=== PATIENT | female | born 1990 | race African-American/Black ===

== ENCOUNTER → 2019-11-10 | Outpatient (CLI) | payer BC | LOC: RAD 14:30 | PROVIDERS: ATTEND Family Medicine | DX: R20.8 Other disturbances of skin sensation (principal); Z98.82 Breast implant status; Z53.8 Procedure and treatment not carried out for other reasons ==

== ENCOUNTER → 2021-04-19 | Outpatient (CLI) | payer BC ==
[~2021-04-19] MED LIST: ACHD5005 PO; Benzocaine/Menthol TP; DOCU100C37 PO; FERR325T18 PO; IBUP-1773 PO
--- NOTE | 2021-04-19 16:16 | Diagnostic Imaging Report ---
EXAM: OB ULTRASOUND COMPLETE DATE: April 19, 2021. COMPARISON: None. INDICATION: 31-year-old female, supervision of otherwise normal . FINDINGS: Multiple grayscale sonographic images were obtained of the gravid uterus. Overview: Within the uterus there is a single living gestation in cephalic position. There is positive movement and heart motion. heart rate was identified at 150 beats per minute. The amnionic fluid volume is subjectively normal. The placenta is anterior and without previa. The cervical length is 4.3 cm. growth parameters are summarized in detail on the accompanying separate chart. The approximate mean gestational age by today's ultrasound measurements is 20 weeks 2 days +/- 1.5 week variability. Estimated weight based on today's measurements is 334 g. anatomic survey: There is no ventriculomegaly (the lateral ventricle measures 5 mm) the cerebellum, cavum septum pellucidum, falx, and cisterna magna are identified. There is limited images of the spine without demonstrated abnormality. There is visualization of the stomach, kidneys and urinary bladder. The cardiac apex and stomach are on the same side of midline. There is a limited four-chamber view of the heart. There is a three-vessel cord with an unremarkable insertion into the abdominal wall. 4 extremities are seen. The upper lip is not well seen. The maternal ovaries are not well seen. There is no maternal free pelvic fluid. IMPRESSION: 1. Single living intrauterine with approximate mean gestational age of 20 weeks 2 days +/- 1.5 week. 2. No demonstrated abnormality. There are limitations of the survey as above. Biometrical measurements are as follows: Biparietal 4.80 cm, age 20 weeks 4 days. Head circumference 17.52 cm, age 20 weeks 1 days. Abdominal circumference 14.78 cm, age 20 weeks 1 days. Femur length 3.27 cm, age 20 weeks 2 days. Sonographic estimate age: 20 weeks 2 days. Sonographic estimated date of delivery: 09/04/2021. Estimated Weight: 334 gm (+/- 49 gm). LMP percentile: 45%. heart rate: 150 beats per minute. number: 1 of 1. Dictated by: Dictated on workstation # [id number]
== END ==
LOC: RAD 14:15
PROVIDERS: ATTEND Nurse Practitioner Women's Health
DX: Z34.02 Encounter for supervision of normal first pregnancy, second trimester (principal); Z3A.20 20 weeks gestation of pregnancy
CPT/HCPCS: 76805

== ENCOUNTER 2021-08-20 15:32 | Outpatient (CLI) | payer BC ==
[~2021-08-20] VITALS: Ht 175 cm; Wt 106.0 kg
[2021-08-20 16:05] VITALS: BP 118/65
[2021-08-20 16:08] VITALS: BP 118/65
[2021-08-20] MEDS ORDERED: FOLI20CA PO (16:16)
[2021-08-20] MEDS ORDERED: OMEP20TA33 PO (16:16)
[2021-08-20 16:30] VITALS: BP 118/65
--- NOTE | 2021-08-21 08:16 | Physician Query-Final Dx ---
JOSE RESTREPO 08/21/21 0816: Clinic Account Progress/Dx Physician Query: Please give diagnosis Please include # weeks gestation Date of Service Aug 20, 2021 at 15:32 NNEKA TYSON MD 08/21/21 1710: Clinic Account Progress/Dx DIAGNOSIS: Diagnosis False labor at 37 weeks gestation JOSE RESTREPO Aug 21, 2021 08:16 NNEKA TYSON MD Aug 21, 2021 17:10
== END 2021-08-20 16:35 | disposition home or self-care (01) ==
LOC: WSo 15:32 → LDRP 15:32 → WSo 16:30
PROVIDERS: ATTEND Obstetrics & Gynecology
DX: O42.92 Full-term premature rupture of membranes, unspecified as to length of time between rupture and onset of labor (principal); Z3A.37 37 weeks gestation of pregnancy

== ENCOUNTER 2021-09-09 13:26 | Inpatient (IN) | payer BC ==
[~2021-09-09] VITALS: Ht 177.8 cm; Wt 105.1 kg
[2021-09-09] VITALS (13 sets, daily range): BP systolic 104–148; BP diastolic 56–90
[~2021-09-09 13:26] MED LIST changes: +FOLI20CA PO; +OMEP20TA33 PO
[2021-09-09] MEDS ORDERED: D5 LR IV SOLUTION 1,000 ML IV ONE (13:43)
--- NOTE | 2021-09-09 13:55 | History & Physical-OB/GYN ---
PHUONGDEYVI 09/09/21 1355: OB - Chief Complaint & HPI Date/Time Date of Admission: Date of Admission: Date seen by a Provider: Sep 09, 2021 Time Seen by a Provider: 14:00 Chief Complaint/History OB-Reason for Admission/Chief: Onset of Labor (Began having tractions around 11:00 that were 3 minutes apart) Hx : 3 Hx Para: 2 Expected Date of Delivery: Sep 04, 2021 Gestational Age in Weeks: 40 Gestational Age in Days: 5 Admission Nurse Assessment Rev: Yes Allergies and Home Medications Allergies Coded Allergies: No Known Drug Allergies (Unverified , 12/08/19) Patient Home Medication List Folic Acid (Folic Acid) 20 Mg Capsule, 20 MG PO DAILY, (Reported) Entered as Reported by: PETE PAZ on 08/20/21 161 Omeprazole Magnesium (Prilosec Otc) 20 Mg Tablet., 20 MG PO DAILY, (Reported) Entered as Reported by: PETE PAZ on 08/20/211615 OB - History Hx of Present Care: Yes Ultrasounds: Normal mid trimester US Obstetrical Complications: None Medical Complications: None Information Induced Hypertension: No Maternal Gestational Diabetes: No Hemorrhage: No Obstetrical History Hx : 3 Hx Para: 2 Hx # Term Pregnancies: 2 Number of Living Children: 2 Hx Termination: No Hx Multiple Gestation: No Hx Ectopic : No Hx Stillbirth: No Hx Complication: No Hx Induced Hypertens: No Hx Maternal Gestational Diabet: No Hx Hemorrhage: No Social History/Family History 2nd Hand Smoke Exposure: No OB - Admission Exam Physical Exam Cervical Dilatation: 7cm Effacement: 75% Membranes: Ruptured Amniotic Fluid: Clear OB - Assessment/Plan/Diagnosis Assessment Assessment: active labor, rupture of membranes Admission Dx Active labor, rupture of membranes, dilated 6cm Admission Status: Observation Plan Plan: Expectant Management JAMIE MIR DO 09/09/21 1539: Allergies and Home Medications Allergies Coded Allergies: No Known Drug Allergies (Unverified , 12/08/19) Patient Home Medication List Home Medication List Reviewed: Yes Folic Acid (Folic Acid) 20 Mg Capsule, 20 MG PO DAILY, (Reported) Entered as Reported by: PETE PAZ on 08/20/21 161 Omeprazole Magnesium (Prilosec Otc) 20 Mg Tablet., 20 MG PO DAILY, (Reported) Entered as Reported by: PETE PAZ on 08/20/21 1616 OB - History Patient Past Medical History n/a OB - Admission Exam Physical Exam HEENT: NCAT Heart: Rhythm Normal Lungs: Clear Abdomen: Gravid Extremities: Normal Reflexes: Normal Heart Rate: 140's Accelerations: Accelerations Present Decelerations: No Decelerations Short Term Variability: Present Spanish Language Lecturer Variability: Average (6-25) Contractions on Admission: < 5 Minutes Apart Intensity: Firm OB - Assessment/Plan/Diagnosis Assessment Admission Dx 31 yo @ 40.5 Active labor Reason for Inpatient Admission: Active labor at term Supervisory-Addendum Brief Verification & Attestation Participated in pt care: history Personally performed: exam Care discussed with: Medical Student Procedures: n/a Results interpretation: Verified all documentation Verification and Attestation of Medical Student E/M Service A medical student performed and documented this service in my presence. I reviewed and verified all information documented by the medical student and made modifications to such information, when appropriate. I personally performed the physical exam and medical decision making. Jamie Mir, Sep 09, 2021,15:39 DEYVI BACA Sep 09, 2021 13:55 JAMIE MIR DO Sep 09, 2021 15:39
[2021-09-09] MEDS ORDERED: MINERAL OIL CONCENTRATE 99.9% 15 ML UDC TOP PRN (14:30)
[2021-09-09 14:32] LABS: BASOPHILS % (AUTO) 0 % (0-10); EOSINOPHILS % (AUTO) 0 % (0-10); HEMATOCRIT 39 % (35-52); HEMOGLOBIN 12.8 g/dL (11.5-16.0); LYMPHOCYTES # (AUTO) 2.1 10^3/uL (1.0-4.0); LYMPHOCYTES % (AUTO) 18 % (12-44); MEAN CORPUSCULAR HEMOGLOBIN 28 pg (25-34); MEAN CORPUSCULAR HGB CONC 33 g/dL (32-36); MEAN CORPUSCULAR VOLUME 85 fL (80-99); MEAN PLATELET VOLUME 9.9 fL (9.0-12.2); MONOCYTES # (AUTO) 0.6 10^3/uL (0.0-1.0); MONOCYTES % (AUTO) 5 % (0-12); NEUTROPHILS # (AUTO) 8.6 10^3/uL (1.8-7.8); NEUTROPHILS % (AUTO) 74 % (42-75); PLATELET COUNT 254 10^3/uL (130-400); WHITE BLOOD COUNT 11.6 10^3/uL (4.3-11.0)
[2021-09-09] MEDS ORDERED: OXYTOCIN PRE-MIX DRIP 500 ML IV ONE (15:21)
--- NOTE | 2021-09-09 15:42 | OB Labor & Delivery Record ---
L&D History Date of Service Date of Service: Sep 09, 2021 History Expected Date of Delivery: Sep 04, 2021 Gestational Age in Weeks: 40 Hx : 3 Hx Para: 2 Complications Events: Routine care Operative Indications (Cesarea: N/A-Vaginal Delivery Intrapartal Events: None L&D Stage1 Stage One Onset of Labor - Date: Sep 09, 2021 Rupture of Membranes Spontaneous Ruture of Membrane: Yes Amniotic Membrane Rupture Time: 14:05 Amniotic Membrane Fluid Desc.: Clear Vaginal Bleeding Description: Normal Show Progress/Notes Patient admitted in active labor, no augmentation used. SROM occured after admission. She progressed without any analgesia to complete and + 2 station. L&D Stage2 Stage Two Stage II Date: Sep 09, 2021 Monitors and Tracing Monitor Mode: Internal Monitor Accelerations: Uniform Monitor Decelerations: Variable Insurance Inspector Variability: Average (6-10) Short Term Variability: Present Position: Right Occiput Anterior Presentation: Vertex Cord Descript/Complications Cord Vessel Description: 3 Vessels Delivery Type Delivery Method: Spontaneous Vaginal Anterior Shoulder: Right Episiotomy/Perineal Laceration Laceraction(s)/Extensions: No Condition of Delivery 1 minute Comment: 8 5 minute Comment: 9 Condition of Condition of Infant: Living Exam: No Observed Abnormalities Resuscitation Resuscitation: N/A - Spontaneous Resp L&D Stage3 Stage Three Stage III Date: Sep 09, 2021 Pictocin Pitocin Administration Comment: 20 mu/ wide open Placenta Delivery Placenta Delivery: Spontaneous Delivery Summary Summary Estimated blood loss (mL): 200 Attending at delivery: Yahir Mir DO Condition of Delivery Examined: Cervix Examined, Uterus Explored Post Hemorrhage: No Condition of Mother stable Condition of Infant (s) stable YAHIR MIR DO Sep 09, 2021 15:42
[2021-09-09] MEDS ORDERED: WITCH HAZEL(TUCKS) 40 EA JAR TOP PRN (15:45)
[2021-09-09] MEDS ORDERED: TETANUS,DIPTH,PERTUSS P/F (BOOSTRIX) 0.5 ML VIAL IM ONE (15:45)
[2021-09-09] MEDS ORDERED: HYDROcodone/APAP 5 MG/325 MG (LORTAB) TAB PO PRN (15:45)
[2021-09-09] MEDS ORDERED: BENZOCAINE/MENTHOL (DERMOPLAST) 56 ML CAN TP PRN (15:45)
[2021-09-09] MEDS ORDERED: MEASLES,MUMPS,RUBELLA 1 EA INJ SQ ONE (15:45)
[2021-09-09] MEDS ORDERED: NALOXONE 0.4 MG/ML 1 ML (NARCAN) VIAL IV PRN (15:45)
[2021-09-09] MEDS ORDERED: DIBUCAINE 1% OINTMENT 30 GM TUBE TOP PRN (15:45)
[2021-09-09] MEDS: D5 LR IV SOLUTION 1,000 ML IV SCH ×2 (21:17→22:52)
[2021-09-09] MEDS: OXYTOCIN PRE-MIX DRIP 500 ML IV SCH ×2 (21:18→21:19)
[2021-09-09] MEDS: DOCUSATE SODIUM 100 MG (COLACE) CAP PO SCH (21:22)
[2021-09-09] MEDS: IBUPROFEN 600 MG (MOTRIN) TAB PO SCH ×2 (21:22→21:23)
[2021-09-09] MEDS: CATHETER FLUSH 10 ML SYR IV SCH ×2 (21:23)
[2021-09-10] MEDS: IBUPROFEN 600 MG (MOTRIN) TAB PO SCH ×3 (03:27→17:27)
[2021-09-10] MEDS: CATHETER FLUSH 10 ML SYR IV SCH ×2 (03:31→03:32)
[2021-09-10 03:32] VITALS: BP 122/76
[2021-09-10] MEDS: D5 LR IV SOLUTION 1,000 ML IV SCH (04:45)
[2021-09-10 05:55] LABS: BASOPHILS % (AUTO) 0 % (0-10); EOSINOPHILS # (AUTO) 0.1 10^3/uL (0.0-0.3); EOSINOPHILS % (AUTO) 1 % (0-10); HEMATOCRIT 34 % (35-52); LYMPHOCYTES # (AUTO) 2.6 10^3/uL (1.0-4.0); LYMPHOCYTES % (AUTO) 18 % (12-44); MEAN CORPUSCULAR HEMOGLOBIN 28 pg (25-34); MEAN CORPUSCULAR HGB CONC 33 g/dL (32-36); MEAN CORPUSCULAR VOLUME 85 fL (80-99); MEAN PLATELET VOLUME 9.7 fL (9.0-12.2); MONOCYTES # (AUTO) 0.8 10^3/uL (0.0-1.0); MONOCYTES % (AUTO) 6 % (0-12); NEUTROPHILS # (AUTO) 10.8 10^3/uL (1.8-7.8); NEUTROPHILS % (AUTO) 74 % (42-75); PLATELET COUNT 216 10^3/uL (130-400); WHITE BLOOD COUNT 14.5 10^3/uL (4.3-11.0)
[2021-09-10 06:27] LABS: LYMPHOCYTES % (MANUAL) 23 %; MONOCYTES % (MANUAL) 2 %; NEUTROPHILS % (MANUAL) 75 %
[2021-09-10] MEDS ORDERED: PRENATAL VITAMIN 1 EA TAB PO SCH (07:00)
[2021-09-10 08:45] VITALS: BP 116/68
[2021-09-10] MEDS ORDERED: FERROUS SULF 325 MG (IRON) TAB PO SCH (09:00)
--- NOTE | 2021-09-10 11:21 | Postpartum Progress Note ---
Note Note Day # 1 Subjective: Patient is without complaints. Ambulating, voiding. Tolerating a regular diet without nausea or vomiting. Normal lochia. Pain is well controlled with oral pain medications. Breast feeding. Objective: Physical Exam: General - Alert and oriented, no apparent distress Abdomen - Soft, appropriately tender to palpation, non-distended, fundus firm at umbilicus Extremities - no edema, negative Philip's bilaterally Assessment: Post- day # 1, status post spontaneous vaginal delivery. Recovering well, hemodynamically stable Acute blood loss anemia Plan: Routine care. Encourage breast feeding. Encourage ambulation. Ferrous sulfate supplementation. Plan for discharge this afternoon/evening Vitals - Labs Vital Signs - I&O Vital Signs Date Time Temp Pulse Resp B/P (MAP) Pulse Ox O2 Delivery O2 Flow Rate FiO2 09/10/21 08:45 36.4 71 16 116/68 (84) 99 Room Air 09/10/21 03:32 74 16 122/76 (91) 99 Room Air 09/09/21 23:56 69 16 114/62 (79) 09/09/21 20:05 36.8 72 16 116/74 (88) 97 Room Air 09/09/21 18:25 78 18 113/56 (75) Room Air 09/09/21 18:10 79 18 129/61 (83) Room Air 09/09/21 17:55 82 18 129/77 (94) Room Air 09/09/21 17:40 86 18 131/78 (95) Room Air 09/09/21 17:10 68 18 132/68 (89) Room Air 09/09/21 16:55 68 18 148/86 (106) Room Air 09/09/21 15:55 78 18 104/63 (77) Room Air 09/09/21 15:40 69 18 118/64 (82) Room Air 09/09/21 14:10 83 18 123/77 (92) Room Air 09/09/21 14:00 36.6 75 18 98 Room Air 09/09/21 13:40 36.6 75 18 134/90 (105) Room Air Labs Laboratory Tests 09/09/21 13:40: White Blood Count 11.6H, Red Blood Count 4.61, Hemoglobin 12.8, Hematocrit 39, Mean Corpuscular Volume 85, Mean Corpuscular Hemoglobin 28, Mean Corpuscular Hemoglobin Concent 33, Red Cell Distribution Width 12.9, Platelet Count 254, Mean Platelet Volume 9.9, Immature Granulocyte % (Auto) 2, Neutrophils (%) (Auto) 74, Lymphocytes (%) (Auto) 18, Monocytes (%) (Auto) 5, Eosinophils (%) (Auto) 0, Basophils (%) (Auto) 0, Neutrophils # (Auto) 8.6H, Lymphocytes # (Auto) 2.1, Monocytes # (Auto) 0.6, Eosinophils # (Auto) 0.0, Basophils # (Auto) 0.0, Immature Granulocyte # (Auto) 0.3H 09/10/21 05:36: White Blood Count 14.5H, Red Blood Count 3.94, Hemoglobin 11.0L, Hematocrit 34L, Mean Corpuscular Volume 85, Mean Corpuscular Hemoglobin 28, Mean Corpuscular Hemoglobin Concent 33, Red Cell Distribution Width 12.8, Platelet Count 216, Aleyda n Platelet Volume 9.7, Immature Granulocyte % (Auto) 1, Neutrophils (%) (Auto) 74, Lymphocytes (%) (Auto) 18, Monocytes (%) (Auto) 6, Eosinophils (%) (Auto) 1, Basophils (%) (Auto) 0, Neutrophils # (Auto) 10.8H, Lymphocytes # (Auto) 2.6, Monocytes # (Auto) 0.8, Eosinophils # (Auto) 0.1, Basophils # (Auto) 0.0, Immature Granulocyte # (Auto) 0.2H, Neutrophils % (Manual) 75, Lymphocytes % (Manual) 23, Monocytes % (Manual) 2 DICK GALO APRN Sep 10, 2021 11:21
[2021-09-10] MEDS ORDERED: BENZ78AE5 TP (11:28)
[2021-09-10] MEDS ORDERED: ACHD5005 PO (11:28)
[2021-09-10] MEDS ORDERED: IBUP-844 PO (11:28)
[2021-09-10] MEDS ORDERED: DIBU30OI TOP (11:28)
[2021-09-10] MEDS ORDERED: DOCU100C37 PO (11:28)
--- NOTE | 2021-09-10 11:31 | Discharge Inst-Women's Service ---
Discharge Inst-Women's Serv Depart Medication/Instructions New, Converted or Re-Newed RX: Transmitted to Pharmacy Consults/Follow Up Additional Follow Up: Yes Orders/Referrals 6wk PP appt Activity Activity: Activity as Tolerated Driving Instructions: No Driving for 1 Week NO SMOKING: NO SMOKING Nothing Inside Vagina: No Douching, No [place], No Tampons Diet Discharge Diet: No Restrictions Symptoms to Report to : Bleeding Excessive, Pain Increased, Fever Over 101 Degrees F, Vaginal Bleeding Increase, Questions/Concerns For Any Problems or Questions: Contact Your Physician DICK GALO APRN Sep 10, 2021 11:30
[2021-09-10] MEDS: DOCUSATE SODIUM 100 MG (COLACE) CAP PO SCH (11:48)
[2021-09-10 14:09] VITALS: BP 109/59
== END 2021-09-10 18:22 | disposition home or self-care (01) | DRG 806 ==
LOC: LDRP 13:26 → WSo 13:26 → LDRP 15:00
PROVIDERS: ADMIT Obstetrics & Gynecology; ATTEND Obstetrics & Gynecology
PROC: 10E0XZZ Delivery of Products of Conception, External Approach (ICD-10-PCS; principal; 2021-09-09)
DX: O90.81 Anemia of the puerperium (principal); D62 Acute posthemorrhagic anemia; Z37.0 Single live birth; Z3A.40 40 weeks gestation of pregnancy
CPT/HCPCS: 36415; 85007; 85025; 85027; 86850; 86900; 86901; 99212